=== PATIENT | female | born 1995 | race Two or more races ===

== ENCOUNTER 2017-03-24 11:32 | Emergency (ER) | payer OTHER ==
[2017-03-24] MEDS ORDERED: IBUPROFEN 600 MG TABLET PO ONE (12:24)
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
[2017-03-24 13:20] VITALS: BP 109/74
== END 2017-03-24 13:20 | disposition home or self-care (01) ==
LOC: ER 11:32
DX: S16.1XXA Strain of muscle, fascia and tendon at neck level, initial encounter (principal); M54.89 Other dorsalgia; M54.5 Low back pain; R51 Headache; V49.40XA Driver injured in collision with unspecified motor vehicles in traffic accident, initial encounter
CPT/HCPCS: 99283